=== PATIENT | male | born 1960 | race Caucasian/White ===

== ENCOUNTER 2022-06-23 17:04 | Emergency (ER) | payer MEDICAID ==
[~2022-06-23] VITALS: Ht 172.7 cm; Wt 69.0 kg
[~2022-06-23 17:04] MED LIST: CLON2TAB
[2022-06-23] MEDS ORDERED: CEPH-510 PO (17:45)
[2022-06-23] MEDS ORDERED: LIDOCAINE 1% HCL (LOCAL ANESTH.) INJ 20ML MDV IJ ONE (17:45)
[2022-06-23 17:49] VITALS: BP 165/83
== END 2022-06-23 17:51 | disposition home or self-care (01) ==
LOC: ER 17:04
DX: S90.452A Superficial foreign body, left great toe, initial encounter (principal); W46.0XXA Contact with hypodermic needle, initial encounter; Y93.89 Activity, other specified; Y92.89 Other specified places as the place of occurrence of the external cause; Y99.8 Other external cause status
CPT/HCPCS: 28190; 99284; J2001